=== PATIENT | female | born 1960 | race Caucasian/White ===

== ENCOUNTER → 2020-05-09 06:58 | Outpatient (CLI) | payer BC, SELFPAY ==
--- NOTE | 2020-05-09 09:25 | STRESSREP ---
Stress Test Report Pharmacologic myocardial perfusion stress test. 60-year-old lady with a history of chest discomfort. Resting EKG demonstrates normal sinus rhythm with a rate of 67 bpm normal intervals are noted resting blood pressure is 116/72 mmHg. 0.4 mg of regadenoson was infused per usual protocol followed by rapid intravenous saline flush injection continuous EKG monitoring was performed. The maximum heart rate attained was 100 bpm which was 62% of max impacted heart rate the maximum workload was 1 metabolic equivalent. At rest there were no ST or T wave changes noted to suggest abnormal flow reserve and at peak infusion nonspecific ST-T wave changes were noted with no meet the criteria for ischemia. The resting blood pressure was 116/72 with a final blood pressure 108/64. Myocardial perfusion protocol. 11.0 mCi of technetium 99m sestamibi was injected at rest. 0.4 mg of regadenoson was infused per usual protocol at peak infusion 35.0 mCi of technetium 99m sestamibi was injected stress images were obtained stress and resting images were reconstructed and compared in the short axis vertical long horizontal long axis. Gated images were also obtained Perfusion SPECT analysis: Review of the stress images demonstrate normal uptake of tracer noted in all areas of the myocardium the resting images similar demonstrate normal uptake of tracer noted in all areas of the myocardium. Gated SPECT analysis: The gated ejection fraction is 82%. Conclusion: Normal pharmacologic myocardial perfusion stress test. Preserved ejection fraction.
== END ==
DX: R07.9 Chest pain, unspecified (principal)
CPT/HCPCS: 78452; 93017; A9500; A4216; J2785

== ENCOUNTER → 2025-09-18 | Outpatient (CLI) | payer MEDICARE, OTHER, SELFPAY ==
--- NOTE | 2025-09-18 09:39 | MRI_ITS ---
PROCEDURE: SPINE LUMBAR (ROUTINE) 09/18/2025 REASON FOR EXAM: PAIN, STENOSIS W NEUROGENIC CLAUDICATION, SPONDY TECHNIQUE: Procedure Code: MRISPL Modality: MR Procedure: SPINE LUMBAR (ROUTINE) COMPARISON: None available. FINDINGS: For the purposes of this report, the most caudal rectangular vertebral body will be designated L5. The next most caudal trapezoidal shaped vertebral body will be designated S1. The intervening disc at the lumbosacral angle is designated L5-S1. The normal lumbar lordosis is overall maintained. The lumbar vertebral bodies are normal in height. Grade 1 L2-L3, L3-L4, and L5-S1 retrolisthesis. The lumbar bone marrow signal is within normal limits. Multilevel disc desiccation. Intervertebral disc space height loss most prominent at L2-L3 and L3-L4. There is no evidence of signal abnormality in the imaged distal spinal cord. The conus medullaris terminates at the level of L1-L2. T12-L1: No significant spinal canal stenosis neural foraminal narrowing. L1-L2: Disc bulge on the ventral thecal sac. Bilateral facet arthrosis and ligamentum flavum hypertrophy. No significant neural foraminal narrowing. L2-L3: Disc bulge with superimposing right paracentral disc protrusion, bilateral facet arthrosis, and ligamentum flavum hypertrophy. [id number]-[id number] spinal canal stenosis. No significant neural foraminal narrowing. Type 2 Modic endplate changes. L3-L4: Central disc extrusion with caudal migration, bilateral facet arthrosis, and ligamentum flavum hypertrophy all contribute to severe spinal canal stenosis. Moderate bilateral neural foraminal narrowing. Type 1 Modic endplate changes. L4-L5: Disc bulge flattens the ventral thecal sac. Bilateral facet arthrosis and ligamentum flavum hypertrophy. Mild bilateral neural foraminal narrowing. Type 2 Modic endplate changes. L5-S1: Disc bulge, bilateral facet arthrosis, and ligamentum flavum hypertrophy. Mild spinal canal stenosis. Severe right and [id number] left neural foraminal narrowing. Type 1 Modic endplate changes. Fatty atrophy of the posterior paraspinal muscles. MRI/Spine Lumbar (Routine) IMPRESSION: Lumbar spondylosis most marked at L3-L4 where there is severe spinal canal sten osis predominantly secondary to disc extrusion. At L5-S1, severe right and [id number] left neural foraminal stenosis. Additional details as discussed above. Reading Location: [facility]
== END | disposition home or self-care (01) ==
LOC: MRI 09:25
PROVIDERS: Referring Provider Student in an Organized Health Care Education/Training Program; Visit Provider Student in an Organized Health Care Education/Training Program
DX: M43.16 Spondylolisthesis, lumbar region (principal); M51.362 Other intervertebral disc degeneration, lumbar region with discogenic back pain and lower extremity pain; M48.062 Spinal stenosis, lumbar region with neurogenic claudication
CPT/HCPCS: 72148